=== PATIENT | male | born 1975 ===

== ENCOUNTER → 2021-03-13 | Emergency (ER) | payer OTHER ==
[~2021-03-13] VITALS: Ht 165.1 cm; Wt 64.4 kg
== END | disposition home or self-care (01) ==
LOC: ER 11:23
DX: S01.311A Laceration without foreign body of right ear, initial encounter (principal); W45.8XXA Other foreign body or object entering through skin, initial encounter; Y92.832 Beach as the place of occurrence of the external cause; Y93.18 Activity, surfing, windsurfing and boogie boarding; Y99.8 Other external cause status

== ENCOUNTER → 2021-03-24 | Emergency (ER) | payer OTHER | END | disposition left against medical advice (07) | LOC: ER 15:15 | DX: Z53.21 Procedure and treatment not carried out due to patient leaving prior to being seen by health care provider (principal) ==